=== PATIENT | female | born 1945 | race Caucasian/White ===

== ENCOUNTER → 2022-01-26 11:27 | Outpatient (BNVA) | payer BC, SELFPAY | PROVIDERS: PCP Neurological Surgery; Visit Provider Nurse Practitioner Family | DX: G25.0 Essential tremor (principal); R42 Dizziness and giddiness | CPT/HCPCS: 99212 ==

== ENCOUNTER → 2022-04-27 14:18 | Outpatient (BNVA) | payer BC, SELFPAY | PROVIDERS: PCP Neurological Surgery; Visit Provider Nurse Practitioner Family | DX: Z13.89 Encounter for screening for other disorder (principal) ==

== ENCOUNTER 2022-10-28 13:26 | Outpatient (AMB) | payer OTHER, SELFPAY ==
--- NOTE | 2022-10-28 13:26 | A.OFFVIS_ITS ---
Intake Vital Signs 10/28/22 13:28 Height 4 ft 11 in Weight 115 lb BMI 23.2 BP 118/72 Blood Pressure Location Rt brachial Position Sitting Pulse 84 Pulse Source Pulse Oximeter Pulse Oximetry (%) 94 Oxygen Delivery Method Room Air Intake Visit Reasons: 6 mnts f/u appt-LVM Intake Note: Patient presents for 6 month follow up. Patient states this nis a follow up on tremors I brought her equipment back.I wanted to ask her for something for anxiety. Allergies No Known Allergies Allergy (Verified 10/28/22 13:29) Medication List - Last Reconciled 10/28/22 by TIM Pollock aspirin 81 mg PO DAILY 90 days atorvastatin 20 mg PO DAILY donepezil 10 mg PO BEDTIME hydrochlorothiazide 25 mg PO DAILY levothyroxine 112 mcg PO DAILY naproxen 500 mg PO BID sertraline 50 mg PO DAILY HPI HPI Comments History of Present Illness Details 77-yr-old female presents for f/u visit, accompanied by her long-term partner Mandeep. Pt denies any significant interval medical changes. However, pt reports she has been having anxiety but she odes not know why. She describes the anxiety as a feeling of chest heaviness that comes on and off for about 30 minutes at a time. She denies any associated stress, worry, palpitations, SOB, or chest pain. Her tremor is now well-controlled after she started using Blake-Trio. She used it for a 90 day cycle- and feels the tremor is still well-controlled. She was not sure if she should return the device. She tolerated it well, but her partner believes it has caused a growth/swelling in the left posterior wrist. Today the area is non-tender, they state it smaller now than it originally was. [facility] Medical History Arthritis Carpal tunnel syndrome CREST syndrome Hyperlipidemia Hypothyroidism Osteoarthritis Osteoporosis Family History Father Essential tremor Brother Essential tremor Brother Essential tremor Social History Alcohol intake: current Alcohol intake frequency: a few times a month Patient Tobacco Use Status: Former Tobacco user Review of Systems Const All systems reviewed & are unremarkable except as noted in HPI and below Physical Exam Vital Signs: Last Vital Signs Pulse 84 10/28/22 13:28 BP 118/72 10/28/22 13:28 Pulse Ox 94 10/28/22 13:28 Oxygen Delivery Method Room Air 10/28/22 13:28 BMI result Body Mass Index 23.2 Const General: cooperative and no acute distress Orientation/consciousness: patient oriented x3 HEENT Head: Yes normocephalic Resp Effort & Inspection: normal respiratory effort and able to speak in complete sentences Neuro Other: Mild BUE postural tremor. No significant tone. Left posterior wrist- ? bony growth/mass. General: patient oriented x3, gait normal and CN's II-XI intact bilaterally Cognition (Neuro): normal cognition Motor exam (neuro): 5/5 motor strength present throughout Psych Appearance: grossly normal Mental Status: mental status grossly normal Speech and movement: Clear speech present Affect: normal affect Attitude: cooperative Assessment & Plan Assessment & Plan (1) Chest heaviness: Code(s): R07.89 - Other chest pain (2) Essential tremor: Code(s): G25.0 - Essential tremor (3) Mass of left wrist: Code(s): R22.32 - Localized swelling, mass and lump, left upper limb Plan For ET: Continue Blake-Trio for LUE (size small)- up to 5 x's per day. Pt will start w/ BID and monitor effect. Will check left wrist XR to assess growth/mass. For report of anxiety: Pt advised to undergo EKG. will f/u upon review. f/u in 4-6 months or sooner prn new/worsening s/s. Orders: Orders ECG 12 lead EKG Today R07.89 - Other chest pain XR wrist LT min 3V Today M25.532 - Pain in left wrist, R22.32 - Localized swelling, mass and lump, left upper limb Coding Level of Care Code Est Pt Level 4 (12661) Diagnoses Chest heaviness R07.89 Essential tremor G25.0 Mass of left wrist R22.32
[2022-10-28 13:28] VITALS: BP 118/72; PULSE 84; O2SAT 94; BMI 23.2
== END 2022-10-28 14:02 | disposition home or self-care (01) ==
PROVIDERS: Visit Provider Nurse Practitioner Family
DX: R07.89 Other chest pain (principal); G25.0 Essential tremor; R22.32 Localized swelling, mass and lump, left upper limb
CPT/HCPCS: 99214

== ENCOUNTER → 2022-10-28 13:26 | Outpatient (BNVA) | payer MEDICARE, SELFPAY | PROVIDERS: Visit Provider Nurse Practitioner Family | DX: R07.89 Other chest pain (principal); G25.0 Essential tremor; R22.32 Localized swelling, mass and lump, left upper limb | CPT/HCPCS: 99212 ==

== ENCOUNTER 2023-09-01 09:42 | Outpatient (AMB) | payer BC, SELFPAY ==
--- NOTE | 2023-09-01 10:09 | A.OFFVIS_ITS ---
Vital Signs 09/01/23 10:19 Height 4 ft 11 in Weight 112 lb BMI 22.6 BP 114/78 Blood Pressure Location Rt brachial Position Sitting Pulse 62 Pulse Source Pulse Oximeter Pulse Oximetry (%) 98 Oxygen Delivery Method Room Air Intake Visit Reasons: 6 mnts f/u appt-CONF Intake Note: Patient presents for 6 month follow up. patient has no concerns Allergies No Known Allergies Allergy (Verified 09/01/23 10:21) Medication List - Last Reconciled 09/01/23 by TIM Pollock aspirin 81 mg PO DAILY 90 days atorvastatin 20 mg PO DAILY donepezil 10 mg PO BEDTIME hydrochlorothiazide 25 mg PO DAILY levothyroxine 112 mcg PO DAILY naproxen 500 mg PO BID sertraline 50 mg PO DAILY HPI Comments Details: Left-handed 78-yr-old female presents for f/u visit. Pt accompanied by her friend. Pt denies any significant interval medical history changes. She continues to have BUE tremors, but LUE tremor is more bothersome. The tremor interferes with eating. She can no longer use her contacts. Denies orthostatic lightheadedness, rigidity, cramps, falls. Blake-Trio helped some, but was more of a bother- felt it caused a ganglion cyst which has finally resolved. Tremor can improve after taking a glass of wine. She plans to move to nursing home next month- to [facility]. Pt has previously failed- Carbidopa-Levodopa, Propranolol, and Primidone. [facility] Medical History Arthritis Carpal tunnel syndrome CREST syndrome Hyperlipidemia Hypothyroidism Osteoarthritis Osteoporosis Family History Father Essential tremor Brother Essential tremor Brother Essential tremor Social History Alcohol intake: current Alcohol intake frequency: a few times a month Patient Tobacco Use Status: Former Tobacco user Review of Systems Const All systems reviewed & are unremarkable except as noted in HPI and below Physical Exam Vital Signs: Last Vital Signs Pulse 62 09/01/23 10:19 BP 114/78 09/01/23 10:19 Pulse Ox 98 09/01/23 10:19 Oxygen Delivery Method Room Air 09/01/23 10:19 BMI result Body Mass Index 22.6 Const General: cooperative and no acute distress Resp Effort & Inspection: normal respiratory effort and able to speak in complete sentences Neuro Other: General: A&O x's 3 Expression: Mildly intact Voice: Intact Tremor: BUE postural tremor, mild RUE rest tremor Tone: MILD LUE tone Dyskinesia: None FFM: Mildly decreased, more so on left Foot taps: Mildly decreased Gait: Uses arms to stand, decreased left arm swing, shorted steps, left leg stride slightly shorted adam right Psych: pleasant affect Assessment & Plan Assessment & Plan (1) Essential tremor: Code(s): G25.0 - Essential tremor Category: Medical (2) Rigidity: Comment: LUE Code(s): R29.898 - Other symptoms and signs involving the musculoskeletal system Category: Medical (3) Mass of left wrist: Comment: improved Code(s): R22.32 - Localized swelling, mass and lump, left upper limb Category: Medical Plan Pt would like to retry medication for tremor. Retry CD-LD 25-100mg 1 tab 1-2 x's per day, advised to take 30 minutes before and 2 hrs after full meal or protein intake. Reviewd common CD-LD s/e's- pt advised to call arreaga w/ any untoward effects. f/u in 6 months or sooner prn. Medications: New carbidopa-levodopa 25-100 mg take w/ a cracker 30 minutes before breakfast and dinner, 1 tab PO BID 30 days 60 tabs 3RF Coding Level of Care Code Est Pt Level 4 (50178) Diagnoses Essential tremor G25.0 Rigidity R29.898 Mass of left wrist R22.32
[2023-09-01 10:19] VITALS: BP 114/78; PULSE 62; O2SAT 98; BMI 22.6
== END 2023-09-01 11:11 | disposition home or self-care (01) ==
PROVIDERS: PCP Neurological Surgery; Visit Provider Nurse Practitioner Family
DX: G25.0 Essential tremor (principal); R29.898 Other symptoms and signs involving the musculoskeletal system; R22.32 Localized swelling, mass and lump, left upper limb
CPT/HCPCS: 99214

== ENCOUNTER → 2023-09-01 09:42 | Outpatient (BNVA) | payer BC, MEDICARE, SELFPAY | PROVIDERS: PCP Neurological Surgery; Visit Provider Nurse Practitioner Family | DX: M25.532 Pain in left wrist (principal); R22.32 Localized swelling, mass and lump, left upper limb ==

== ENCOUNTER 2024-03-22 13:38 | Outpatient (AMB) | payer MEDICARE, SELFPAY ==
--- OUTSIDE RECORDS SUMMARY | 2024-03-22 13:47 | XMS_ITS | Encounter Summary ---
Author Organization [facility] Address [address] [place] [address] Care Team Providers Care Certified Pharmacist Assistant Name Role Phone Vida Terrell MD Primary Care Provider Braxton Lyn MD Unavailable [phone] Marnie Lee MD Unavailable [phone] Encounter Details Date Type Department Care Team (Late st Contact Info) Description 03/27/2018 Scanned Document [facility] Neurology [place] [address] [place] [address] Lan Sauceda MD [address] [place] [address] Social History Tobacco Use Types Packs/Day Years Used Date Smoking Tobacco: Former Smokeless Tobacco: Former Comments:quit 40 years ago Alcohol Use Standard Drinks/Week Comments Yes 0 (1 standard drink = 0.6 oz pur e alcohol) 2 per week Sex and Gender Information Value Date Recorded Sex Assigned at Not on file Gender Identity Not on file Sexual Orientation Not on file documented as of this encounter Plan of Treatment Not on file documented as of this encounter Visit Diagnoses Not on filedocumented in this encounter Care Teams Certified Pharmacist Assistant Relationship Specialty Start Date End Date Vida Terrell MD [address] [place] [id number] PCP - General 02/15/18 Braxton Lyn MD [address] [place] [address] Consulting Provider Rheumatology 03/23/18 Marnie Lee MD [address] [place] [address] Consulting Provider Neurology 03/23/18 documented as of this encounter
--- OUTSIDE RECORDS SUMMARY | 2024-03-22 13:47 | XMS_ITS | Encounter Summary ---
Author Organization [facility] Address [address] [place] [address] Care Team Providers Care Edge Dyer Name Role Phone Vida Terrell MD Primary Care Provider Braxton Lyn MD Unavailable [phone] Marnie Lee MD Unavailable [phone] Encounter Details Date Type Department Care Team (Late st Contact Info) Description 02/23/[address] [facility] [place] [address] Lan Sauceda MD [address] [place] [address] Social History Tobacco Use Types Packs/Day Years Used Date Smoking Tobacco: Never Assessed Sex and Gender Information Value Date Recorded Sex Assigned at Not on file Gender Identity Not on file Sexual Orientation Not on file documented as of this encounter Plan of Treatment Not on file documented as of this encounter Visit Diagnoses Not on filedocumented in this encounter Care Teams Edge Dyer Relationship Specialty Start Date End Date Vida Terrell MD [address] [place] [id number] PCP - General 02/15/18 Braxton Lyn MD [address] [place] [address] Consulting Provider Rheumatology 03/23/18 Marnie Lee MD [address] [place] [address] Consulting Provider Neurology 03/23/18 documented as of this encounter
--- OUTSIDE RECORDS SUMMARY | 2024-03-22 13:47 | XMS_ITS | Clinical Summary ---
Author Organization [facility] Address [address] [place] [id number] Care Team Providers Care [employer] Name Role Phone Vida Terrell MD Primary Care Provider Braxton Lyn MD Unavailable Marnie Lee MD Unavailable [phone] Allergies No known active allergies Medications Medication Sig Dispensed Refills Start Date End Date Status naproxen (NAPROSYN) 500 MG tablet Take 1 tablet by mouth 2 (two) times a day as needed. 02/10/2018 Active meclizine (ANTIVERT) 25 MG tablet Take 1 tablet by mouth 3 (three) times a day as needed. 02/09/2018 Active levothyroxine (SYNTHROID, LEVOTHROID) 112 MCG tablet Take 1 tablet by mouth daily. 02/10/2018 Active hydrochlorothiazide (HYDRODIURIL) 25 MG tablet Take 1 tablet by mouth daily. 02/10/2018 Active fluticasone (FloNASE) 50 mcg/spray nasal spray 2 sprays into each nostril daily as needed. Active atorvastatin (LIPITOR) 10 MG tablet Take 1 tablet by mouth daily. 02/21/2018 Active ustekinumab (STELARA) 45 MG/0.5ML injection Stelara 45 mg/0.5 mL subcutaneous syringe Active estradiol (ESTRACE) 0.01 % vaginal cream Insert 2 g into the vagina daily. 01/23/2018 Active coenzyme Q10 (CO Q 10) 100 MG capsule Take 100 mg by mouth daily. Active calcium carbonate (OS-LAURA) 600 MG tablet Take 600 mg by mouth every morning with breakfast. Active cetirizine (ZyrTEC) 10 MG tablet Take 10 mg by mouth daily as needed. Active Cholecalciferol (VITAMIN D3 PO) Take 1 tablet by mouth daily. Active Multiple Vitamins-Minerals (CENTRUM SILVER ULTRA WOMENS PO) Take 1 tablet by mouth daily. 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 02/2017 CREST syndrome 01/23/2018 Arthritis 01/21/2017 Chronic right shoulder pain 09/30/2016 Vertigo 01/22/2016 Family History Medical History Relation Name Comments Tremor Brother 1 Tremor Brother 2 Dementia Father Parkinsonism Father Stroke Father Tremor Father Dementia Mother Psoriasis Mother Stroke Mother Dementia Sister Glaucoma Sister Relation Name Status Comments Brother 1 Alive Brother 2 Alive Father Mother Sister Alive Social History Tobacco Use Types Packs/Day Years Used Date Smoking Tobacco: Former Smokeless Tobacco: Former Comments:quit 40 years ago Alcohol Use Standard Drinks/Week Comments Yes 0 (1 standard drink = 0.6 oz pur e alcohol) 2 per week Sex and Gender Information Value Date Recorded Sex Assigned at Not on file Gender Identity Not on file Sexual Orientation Not on file Last Filed Vital Signs Vital Sign Reading Time Taken Comments Blood Pressure 138/88 04/20/2018 11:01 AM EDT Pulse 80 04/20/2018 11:01 AM EDT Temperature - - Respiratory Rate - - Oxygen Saturation - - Inhaled Oxygen Concentration - - Weight 51.3 kg (113 lb) 04/20/2018 11:01 AM EDT Height 154.9 cm (5' 1 ) 04/20/2018 11:01 AM EDT Body Mass Index 21.35 04/20/2018 11:01 AM EDT Plan of Treatment Health Maintenance Due Date Last Done Comments Hepatitis C Virus Screening 1945 Quantiferon Gold TB 1954 DTaP/Tdap/Td Vaccines (1 - Tdap) 06/25/1963 Pneumococcal Vaccines 50+ (1 of 2 - PCV) 06/25/1963 Zoster (Shingles) Vaccine (1 of 2) 06/25/1963 DXA Bone Density (Females,Ages 65 and older) 2009 RSV Vaccine 60 years and older and Patients (1 - 1-dose 75+ series) 06/25/2019 Influenza Vaccine 09/08/2023 11/15/2016, 11/10/2015 COVID-19 Vaccine (1 - 2023-2 5 season) 2023 Hepatitis B Vaccines Aged Out No long er eligible based on patient's age to complete this topic Care Teams [employer] Relationship Specialty Start Date End Date Vida Terrell MD [address] [place] [id number] PCP - General 02/15/18 Braxton Lyn MD [address] [place] [address] Consulting Provider Rheumatology 03/23/18 Marnie Lee MD [address] [place] [phone] Consulting Provider Neurology 03/23/18
--- OUTSIDE RECORDS SUMMARY | 2024-03-22 13:47 | XMS_ITS | Encounter Summary ---
Author Organization [facility] Address [address] [place] [address] Care Team Providers Care Real Estate Teacher Name Role Phone Vida Terrell MD Primary Care Provider Braxton Lyn MD Unavailable [phone] Marnie Lee MD Unavailable [phone] Encounter Details Date Type Department Care Team (Late st Contact Info) Description 03/27/2018 Scanned Document [facility] Neurology [place] [address] [place] [address] Lan Sauceda MD [address] [place] [address] Social History Tobacco Use Types Packs/Day Years [...] on filedocumented in this encounter Care Teams Real Estate Teacher Relationship Specialty Start Date End Date Vida Terrell MD [address] [place] [id number] PCP - General 02/15/18 Braxton Lyn MD [address] [place] [address] Consulting Provider Rheumatology 03/23/18 Marnie Lee MD [address] [place] [address] Consulting Provider Neurology 03/23/18 documented as of this encounter
--- OUTSIDE RECORDS SUMMARY | 2024-03-22 13:47 | XMS_ITS | Clinical Summary ---
Author Organization [facility] Address [address] [place] [address] Care Team Providers Care Repossessor Name Role Phone Tabitha Robison MD Primary Care Provider Allergies No known active allergies Medications atorvastatin (LIPITOR) 20 mg tablet Take 1 tablet (20 mg total) by mouth 1 (one) time each day. 06/07/19 24 Active donepeziL (ARICEPT) 10 mg tablet TAKE 1 TABLET BY MOUTH AT BEDTIME 04/14/19 24 Active fluorouraciL (EFUDEX) 5 % cream Apply 1 Drop topically 2 times daily. Per derm Active levothyroxine (SYNTHROID, LEVOTHROID) 112 mcg tablet Take 1 tablet (112 mcg total) by mouth 1 (one) time each day. 09/05/19 24 Active sertraline (ZOLOFT) 50 mg tablet Take 1.5 tablets (75 mg total) by mouth 1 (one) time each day. 02/17/19 24 Active calcium carb/vit D3/minerals (CALCIUM-VITAM IN D ORAL) 1 TAB PO QD Active cetirizine (ZyrTEC) 10 mg tablet 1 TABLET DAILY 02/17/19 07 Active naproxen (NAPROSYN) 500 mg tablet Take 1 tablet (500 mg total) by mouth 2 (two) times a day with meals. 180 tablet 1 03/02/19 25 Active hydroCHLOROthi azide (HYDRODIURIL) 25 mg tablet TAKE 1 TABLET BY MOUTH DAILY 90 tablet 1 03/13/19 25 Active hydroCHLOROthi azide (HYDRODIURIL) 25 mg tablet Take 1 tablet (25 mg total) by mouth 1 (one) time each day. 09/23/19 24 025 Discontinued naproxen (NAPROSYN) 500 mg tablet Take 1 Tablet by mouth 2 times daily (with meals). 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 Osteopenia 08/01/2013 Hypertension 07/14/2010 ADHD (attention deficit hyperactivity disorder) 02/14/2009 Carpal tunnel syndrome 03/01/2007 Psoriasis 04/23/2005 Overview (01/20/2024): Follows with [place] [facility], last seen 08/13/2021 restarted on Stelara Meniere's disease 04/23/2005 Overview (01/20/2024): IMO update Lumbago 04/23/2005 Depressive disorder 04/23/2005 Hypothyroidism 04/23/2005 Psoriatic arthropathy 04/23/2005 Pure hypercholesterolemia 04/23/2005 Immunizations Name Administration Dates Next Due DTaP, Unspecified 12/23/2001 Influenza Quadravalent, MDCK , 0.5ml, preservative free (Flucelvax) 6mo and older 03/07/2019 Influenza Quadravalent, MDCK , 0.5ml, with preservative (Flucelvax) 6mo and older 12/17/2016 Influenza trivalent, 0.5mL ( Fluad) 65yo and older 11/13/2022,10/29/2021,11/11/2020 Influenza trivalent, 0.5mL, preservative free (Fluarix; FluLaval; Fluzone) ages 6mo and older (Afluria) 3 years and older 11/13/2019,11/09/2017,11/15/2016,11/09 Influenza trivalent, with pr eservative (Fluzone; Afluria) 6mo and older 11/05/2017,12/10/2015,12/02/2014,11/07,11/27/2013,11/07/2013,11/02/2012 ,11/03/2011,11/12/2010,11/13/2009,12/08 Moderna (age 6mo & older) Bi valent, COVID-19, 0.5 mL or 0.25 mL dosage 10/29/2021 Moderna SARS-CoV-2 COVID-19, mRNA, LNP-S, preservative free 12/26/2020 PPD Test 06/18/2003 Pfizer SARS-CoV-2 COVID-19, mRNA, LNP-S, preservative free 12/26/2020,05/28/2020,05/08/2020 Pneumococcal conjugate 13 va lent (Prevnar 13, PCV13) 2mo and older 12/02/2014 Pneumococcal polysaccharide 23 valent (Pneumovax 23) 2yo and older 01/04/2012,01/16/2004 Td Tetanus diptheria (Tdvax) 7yo and older 04/07/2009,12/23/2001 Tdap Tetanus diptheria acell ular pertussis (Boostrix; Adacel) 7yo and older 12/17/2016 Zoster Live 08/08/2013,08/07/2013 Surgical History Surgery Date Site/Laterality Comments BREAST REDUCTION PROCEDURE: OK BREAST REDUCTION TONSILLECTOMY PROCEDURE: HISTORICAL TONSILLECTOMY APPENDECTOMY PROCEDURE: OK APPENDECTOMY CARPAL TUNNEL RELEASE 02/15/2017 Left PROCEDURE: HISTORICAL CARPAL TUNNEL REL Medical History Medical History Date Comments Psoriatic arthropathy ([facility]/HCC) DX:Psoriatic arthropathy (HCC) Lumbago DX:Lumbago Unspecified hypothyroidism 04/23/2005 DX:Un specified hypothyroidism Meniere's disease, unspecified 04/23/2005 D X:Meniere's disease, unspecified Other psoriasis and similar disorders 04/23/2005 DX:Other psoriasis and similar disorders Pure hypercholesterolemia 04/23/2005 DX:Pur e hypercholesterolemia Depressive disorder, not els ewhere classified 04/23/2005 DX:Depressive disorder, not elsewhere classified Depressive disorder, not els ewhere classified 04/23/2005 DX:Depressive disorder, not elsewhere classified Anxiety state, unspecified DX:An xiety state, unspecified Generalized osteoarthrosis, unspecified site DX:Generalized osteoarthrosi s, unspecified site Essential hypertension, benign 07/14/2010 D X:Essential hypertension, benign Family History Medical History Relation Name Comments Hyperlipidemia Brother 1 Hypertension Brother 2 Sleep apnea Brother 3 Arthritis Brother 4 Arthritis Brother 5 Arthritis Father Heart failure Father Colon cancer Maternal Grandfather smoker Arthritis Mother Heart failure Mother Hyperlipidemia Mother Stroke Mother Arthritis Paternal Grandmother Hyperlipidemia Sister 1 Glaucoma Sister 2 Relation Name Status Comments Brother 1 Brother 2 Brother 3 Brother 4 Brother 5 Brother 6 Alive htn, type II, c hol, arthritis Brother 7 Alive htn, chol, arth ritis Father Maternal Grandfather Maternal Grandmother Mother Paternal Grandfather Paternal Grandmother Sister 1 Sister 2 Sister 3 1 sister, glauc keshia Social History Tobacco Use Types Packs/Day Years Used Date Smoking Tobacco: Former Cigarettes Q uit: 02/07/1974 Smokeless Tobacco: Never Alcohol Use Standard Drinks/Week Comments Yes 0 (1 standard drink = 0.6 oz pur e alcohol) Comments Unknown Sex and Gender Information Value Date Recorded Sex Assigned at Not on file Legal Sex Female 11:40 PM EST Gender Identity Not on file Sexual Orientation Not on file Obstetrics History Last Filed Vital Signs Vital Sign Reading Time Taken Comments Blood Pressure 100/70 11/30/2023 10:17 AM EDT Pulse 73 11/30/2023 10:17 AM EDT Temperature - - Respiratory Rate - - Oxygen Saturation - - Inhaled Oxygen Concentration - - Weight 51.5 kg (113 lb 9.6 oz) 11/30/2023 10:17 AM EDT Height 152.4 cm (5') 11/30/2023 10:17 AM EDT Body Mass Index 22.19 11/30/2023 10:17 AM EDT Plan of Treatment Upcoming Encounters Date Type Department Care Team (Late st Contact Info) Description 05/31/2024 9:45 AM EDT Office Visit Adult Medicine - [place] [address] [place] [id number] Tabitha Robison MD [address] [place] [address] Health Maintenance Due Date Last Done Comments Zoster Vaccines (2 of 3) 10/03/2013 08/08/2013, 02/2013 RSV Immunization Patients 60+ Years Old (1 - 1-dose 75+ series) 06/25/2019 Social Influencers of Health Screening 01/10/2022 COVID-19 Vaccine ( season) 2023 11/13/2022, 10/29/2021, 12/26/2020, Additional history exists Influenza Vaccine (#1) 2023 , 10/29/2021, 11/11/2020, Additional history exists Hypertension/CHF/CAD Annual BMP Blood Test 05/10/2024 05/11/2023 Depression Screening 11/29/2024 11/30/2023 Falls Risk Assessment 11/29/2024 11/30/2023 DTaP,Tdap,and Td Vaccines (5 - Td or Tdap) 12/17/2026 12/17/2016, 04/07/2009, 12/23/2001, Additional history exists Osteoporosis Screening (Bone Density Screening) 11/18/2027 11/17/2017 Cholesterol Screening (Lipid Panel) 05/10/2028 05/11/2023 Hepatitis C Screening Completed 08/07/2013 Pneumococcal Vaccine: 50+ Years Completed 12/02/2014, 01/04/2012, 01/16/2004 HIB Vaccines Aged Out No longer eligi ble based on patient's age to complete this topic HPV Vaccines Aged Out No longer eligi ble based on patient's age to complete this topic Hepatitis A Vaccines Aged Out No long er eligible based on patient's age to complete this topic Hepatitis B Vaccines Aged Out No long er eligible based on patient's age to complete this topic IPV Vaccines Aged Out No longer eligi ble based on patient's age to complete this topic MMR Vaccines Aged Out No longer eligi ble based on patient's age to complete this topic Meningococcal ACWY Vaccine Aged Out N o longer eligible based on patient's age to complete this topic Meningococcal B Vacine Aged Out No lo nger eligible based on patient's age to complete this topic RSV Immunization Patients Under 20 months Aged Out No longer eligible based on patient's age to complete this topic Varicella Vaccines Aged Out No longer eligible based on patient's age to complete this topic Procedures Procedure Name Priority Date/Time Associated Diagnosis Comments HM DEPRESSION SCREENING Routine 11/30/2023 FALLS RISK ASSESSMENT Routine 11/30/2023 ANNUAL BMP BLOOD TEST Routine 05/11/2023 LIPID PANEL Routine 05/11/2023 DXA BONE DENSITY STUDY 1+ SITS AXIAL SKEL Routine 11/17/2017 7:01 PM EDT Other specified disorders of bone density and structure, unspecified site HEPATITIS C SCREENING Routine 08/07/2013 from Last 3 Months or Most Recently Relevant to Health Maintenance Results * Falls Risk Assessment (11/30/2023) [facility] Falls Risk Assessment abstracted [facility] Provider HEALTH MAINTENANCE Final Result * Depression Screening (11/30/2023) Pathologist [facility] Depression Screening abstracted [facility] Provider HEALTH MAINTENANCE Final Result * Annual BMP Blood Test (05/11/2023) Pathologist [facility] Annual BMP Blood Test abstracted [facility] Provider HEALTH MAINTENANCE Final Result * (ABNORMAL) Lipid panel (05/11/2023) [facility] LDL/HDL Ratio 3 0 - 4 Triglycerides 90 0 - 150 mg/dL Cholesterol 239(A) 0 - 200 mg/dL HDL 88 >=40 mg/dL LDL Cholesterol 133(A) 0 - 100 mg/dL Blood Venous blood specimen / Unknown [facility] Provider LAB BLOOD ORDERABLES Hannah l Result * DXA BONE DENSITY STUDY 1+ SITS AXIAL SKEL (11/17/2017 7:01 PM EDT) Anatomical Region Laterality Modality Bone Densitometr y 08/25/2017 3:18 PM EDT Narrative 11/18/2017 6:36 PM EDT DEXA SCAN: Lumbar Spine T-score is 1.5. ?? (SD relative to 20-29 y/o adult) Z-score is 3.8. ??(SD relative to age matched peers) This is considered normal by WHO criteria. Left Hip T-score is -2.0. Z-score is -0.3. This is considered osteopenia by WHO criteria. Comparison exam(s): None. IMPRESSION: Osteopenia by WHO criteria. This patient has a 11% risk of major osteoporotic fracture and a 2.1% risk of hip fracture over the next 10 years. (World Health Organization Fracture Risk Assessment) [facility] Department of Internal Medicine recommends using National Osteoporosis Foundation (NOF) guidelines in treatment decisions related to osteoporosis. NOF guidelines suggest considering treatment for postmenopausal women and men aged 50 or older presenting with the following: History of hip or vertebral fracture. T-score = -2.5 (DXA) at the femoral neck, total hip, or spine, after appropriate evaluation to exclude secondary causes. Low bone mass (T-score between -1.0 and -2.5 at the femoral neck or spine) AND a 10-year probability of a hip fracture = 3% OR a 10-year probability of a major osteoporosis-related fracture = 20% based on the [place]-adapted WHO algorithm Please note that all treatment decisions require clinical judgment and consideration of individual patient factors, including patient preferences, co-morbidities, previous drug use, risk factors not captured in the FRAX model (e.g., frailty, falls, vitamin D deficiency, increased bone turnover, interval significant decline in bone density) and possible under- or over-estimation of fracture risk by FRAX. Optional alternative screening schedule based on juliet Amos., [facility] February 25, 2011 for patients with osteopenia (based on hip BMD T-score) is as follows: * ??advanced osteopenia (T scores -2.00 to -2.49), BMD testing every year * ??moderate osteopenia (T scores -1.50 to -1.99), BMD testing every 5 years mild osteopenia or normal BMD (T scores -1.50 and higher), BMD testing every 15 years Procedure Note Juan Castañeda MD - 01/26/2022 DEXA SCAN: Lumbar Spine T-score is 1.5. (SD relative to 20-29 y/o adult) Z-score is 3.8. (SD relative to age matched peers) This is considered normal by WHO criteria. Left Hip T-score is -2.0. Z-score is -0.3. This is considered osteopenia by WHO criteria. Comparison exam(s): None. IMPRESSION: Osteopenia by WHO criteria. This patient has a 11% risk of majorosteoporotic fracture and a 2.1% risk of hip fracture over the next 10 years. (WorldHealth Organization Fracture Risk Assessment) [facility] Department of Internal Medicine recommendsusing National Osteoporosis Foundation (NOF) guidelines in treatment decisions related toosteoporosis. NOF guidelines suggest considering treatment for postmenopausal women and menaged 50 or older presenting with the following: History of hip or vertebral fracture. T-score = -2.5 (DXA) at the femoral neck, total hip, or spine, afterappropriate evaluation to exclude secondary causes. Low bone mass (T-score between -1.0 and -2.5 at the femoral neck or spine)AND a 10-year probability of a hip fracture = 3% OR a 10-year probability of a majorosteoporosis-related fracture = 20% based on the [place]-adapted WHO algorithm Please note that all treatment decisions require clinical judgment andconsideration of individual patient factors, including patient preferences, co- morbidities,previous drug use, risk factors not captured in the FRAX model (e.g., frailty, falls, vitaminD deficiency, increased bone turnover, interval significant decline in bone density) andpossible under- or over-estimation of fracture risk by FRAX. Optional alternative screening schedule based on juliet Amos., [facility] for patients with osteopenia (based on hip BMD T-score) is as follows: * advanced osteopenia (T scores -2.00 to -2.49), BMD testing every year * moderate osteopenia (T scores -1.50 to -1.99), BMD testing every 5years mild osteopenia or normal BMD (T scores -1.50 and higher), BMD testingevery 15 years Vida Terrell MD [facility] [place] [place] DXA PROCEDURES Hannah l Result * Hepatitis C Screening (08/07/2013) Hepatitis C Screening abstracted us Historical Provider HEALTH MAINTENANCE Final Result from Last 3 Months or Most Recently Relevant to Health Maintenance Care Teams Repossessor Relationship Specialty Start Date End Date Tabitha Robison MD PCP - General 02/23/22
--- OUTSIDE RECORDS SUMMARY | 2024-03-22 13:47 | XMS_ITS | Clinical Summary ---
Author Organization [facility] Address [address] [place] [address] Care Team Providers Care Medical Reimbursement Specialist Name Role Phone Hoda Terrell MD Primary Care Provider [phone] Allergies No known active allergies Medications Medication Sig Dispensed Refills Start Date End Date Status amphetamine-dextroam phetamine (ADDERALL) 20 MG tablet Take 0.5 tablets by mouth 2 (two) times a day. 0 09/13/2016 Active hydrochlorothiazide (HYDRODIURIL) tablet 25 mg Take 25 mg by mouth daily. 0 Active naproxen (NAPROSYN) 500 MG tablet Take 500 mg by mouth 2 (two) times a day with meals. 0 Active levothyroxine (SYNTHROID, LEVOXYL) tablet 100 mcg Take 100 mcg by mouth every morning on an empty stomach. 0 Active atorvastatin (LIPITOR) tablet 10 mg 0 08/25/2018 Active naproxen (NAPROSYN) 500 MG tablet Take 1 tablet by mouth. 0 02/10/2018 Active ustekinumab (STELARA) 45 MG/0.5ML subcutaneous injection Stelara 45 mg/0.5 mL subcutaneous syringe 0 Active meclizine (ANTIVERT) 25 MG tablet Take 1 tablet by mouth. 0 02/09/2018 Active fluticasone (FLONASE) 50 MCG/ACT nasal spray spray or apply 2 sprays inside Nose. 0 Active estradiol (ESTRACE) 0.1 MG/GM vaginal cream Place 2 g vaginally. 0 01/23/2018 Acti ve Coenzyme Q10 100 MG capsule Take 100 mg by mouth. 0 Active cholecalciferol (VITAMIN D3) 1000 units tablet Take 1 tablet by mouth. 0 Active cetirizine (ZyrTEC) 10 MG tablet Take 10 mg by mouth. 0 Ac tive calcium carbonate (OS-LAURA) 600 MG tablet Take 600 mg by mouth. 0 Active atorvastatin (LIPITOR) tablet 10 mg Take 1 tablet by mouth. 0 02/21/2018 Active Active Problems Problem Noted Date Diagnosed Date Internal impingement of right shoulder 9 Arthritis of right glenohumeral joint 09/07/2018 Chronic right shoulder pain 09/30/2016 Family History Medical History Relation Name Comments Arthritis Father Arthritis Mother Relation Name Status Comments Father Mother Social History Tobacco Use Types Packs/Day Years Used Date Smoking Tobacco: Never Assessed Sex and Gender Information Value Date Recorded Sex Assigned at Not on file Gender Identity Not on file Sexual Orientation Not on file Last Filed Vital Signs Vital Sign Reading Time Taken Comments Blood Pressure - - Pulse - - Temperature - - Respiratory Rate - - Oxygen Saturation - - Inhaled Oxygen Concentration - - Weight 56.7 kg (125 lb) 09/30/2016 10:34 AM EDT Height 152.4 cm (5') 09/30/2016 10:34 AM EDT Body Mass Index 24.41 09/30/2016 10:34 AM EDT Plan of Treatment Health Maintenance Due Date Last Done Comments Hepatitis C Screening 1944 COVID-19 Vaccine (#1) 1944 Depression Screening 1956 Preventative Health Evaluation 1962 DTap / Tdap / Td (1 - Tdap) 06/25/1963 Shingrix-Zoster Vaccine (1 of 2) 1994 Fall Risk Assessment 2009 Osteoporosis Screening (DEXA Scan) 2009 Pneumococcal Vaccine (1 of 1 - PCV) 2009 RSV Adult > 60+ Yrs or Pregn ant (1 - 1-dose 75+ series) 06/25/2019 Influenza Vaccine (#1) 2023 Hepatitis B Vaccines Aged Out No long er eligible based on patient's age to complete this topic RSV Ped < 20 months Aged Out No longe r eligible based on patient's age to complete this topic Care Teams Medical Reimbursement Specialist Relationship Specialty Start Date End Date Hoda Terrell MD PCP - General Internal Medicine 09/27/16
--- NOTE | 2024-03-22 14:01 | MHC.OFFVIS ---
Vital Signs 03/22/24 14:08 Height 4 ft 11 in Weight 121 lb BMI 24.4 BP 120/60 Blood Pressure Location Rt brachial Position Sitting Pulse 65 Pulse Source Pulse Oximeter Pulse Oximetry (%) 94 Oxygen Delivery Method Room Air Intake Visit Reasons: Follow Up Esthetician Required: No Accompanied by: Spouse Allergies No Known Allergies Allergy (Verified 03/22/24 14:07) HPI Comments Details: Left-handed 78-yr-old female presents for f/u visit. Pt accompanied by her friend. Pt denies any significant interval medical history changes. Pt has moved into [facility], which she is enjoying. She continues to have BUE tremors, but LUE tremor is more bothersome/annoying. She started CD-LD 25-100mg bid- she is not sure how much it is helping. She is Ind with ADLs. She is eating without difficulty. She now has a 4-wheeled seated walker for longer walks and walks out doors. The tremor interferes with eating. She can no longer use her contacts. Denies orthostatic lightheadedness, rigidity, cramps, falls. Tremor can improve after taking a glass of wine. Pt has previously tried- Propranolol and Primidone- ineffective Blake-Trio helped some, but was more of a bother- felt it caused a ganglion cyst which has finally resolved. [facility] Medical History Arthritis Carpal tunnel syndrome CREST syndrome Hyperlipidemia Hypothyroidism Osteoarthritis Osteoporosis Family History Father Essential tremor Brother Essential tremor Brother Essential tremor Social History Alcohol intake: current Alcohol intake frequency: a few times a month Patient Tobacco Use Status: Former Tobacco user Physical Exam Vital Signs: Last Vital Signs Pulse 65 03/22/24 14:08 BP 120/60 03/22/24 14:08 Pulse Ox 94 03/22/24 14:08 Oxygen Delivery Method Room Air 03/22/24 14:08 BMI result Body Mass Index 24.4 Const General: cooperative and no acute distress Resp Effort & Inspection: normal respiratory effort and able to speak in complete sentences Neuro Other: General: A&O x's 3 Expression: Mildly intact Voice: Intact Tremor: BUE postural tremor, mild RUE rest tremor Tone: Mild LUE tone Dyskinesia: None FFM: Mildly decreased, more so on left Foot taps: Mildly decreased Gait: Uses arms to stand, decreased left arm swing, shorter steps. Psych: pleasant affect Assessment & Plan Assessment & Plan (1) Essential tremor: Code(s): G25.0 - Essential tremor Category: Medical (2) Rigidity: Comment: LUE Code(s): R29.898 - Other symptoms and signs involving the musculoskeletal system Category: Medical (3) Gait difficulty: Code(s): R26.9 - Unspecified abnormalities of gait and mobility Category: Medical Plan Continue CD-LD 25-100mg 1 tab 1-2 x's per day. Encourage patient to continue participating in group activities offered at her [facility]. Continue regular physical activity, concur with using walker for longer distances in the outside. f/u in 6 months or sooner prn. Coding Level of Care Code Est Pt Level 4 (43235) Diagnoses Essential tremor G25.0 Rigidity R29.898 Gait difficulty R26.9
[2024-03-22 14:08] VITALS: BP 120/60; PULSE 65; O2SAT 94; BMI 24.4
== END 2024-03-22 14:54 | disposition home or self-care (01) ==
PROVIDERS: PCP Neurological Surgery; Visit Provider Nurse Practitioner Family
DX: G25.0 Essential tremor (principal); R29.898 Other symptoms and signs involving the musculoskeletal system; R26.9 Unspecified abnormalities of gait and mobility
CPT/HCPCS: 99214

== ENCOUNTER → 2024-03-22 13:38 | Outpatient (BNVA) | payer MEDICARE, SELFPAY | PROVIDERS: PCP Neurological Surgery; Visit Provider Nurse Practitioner Family | DX: G25.0 Essential tremor (principal); R26.9 Unspecified abnormalities of gait and mobility; R29.898 Other symptoms and signs involving the musculoskeletal system | CPT/HCPCS: 99212 ==

== ENCOUNTER 2024-10-15 13:54 | Outpatient (AMB) | payer MEDICARE, SELFPAY ==
[2024-10-15 14:33] VITALS: BP 100/60; BMI 23.8
--- NOTE | 2024-10-15 14:33 | A.OFFVIS_ITS ---
Vital Signs 10/15/24 14:33 Height 4 ft 11 in Weight 118 lb BMI 23.8 BP 100/60 Blood Pressure Location Rt brachial Position Sitting Intake Visit Reasons: 6-9 mo follow up Social Media Analyst Required: No Accompanied by: Self / Same As Patient Allergies No Known Allergies Allergy (Verified 03/22/24 14:07) Medication List - Last Reconciled 10/15/24 by TIM Pollock aspirin 81 mg PO DAILY 90 days atorvastatin 20 mg PO DAILY carbidopa-levodopa 25-100 mg ER 2 tabs PO BID 30 days donepezil 10 mg PO BEDTIME hydrochlorothiazide 25 mg PO DAILY levothyroxine 112 mcg PO DAILY naproxen 500 mg PO BID HPI Comments Details: Left-handed 79-yr-old female presents for f/u visit. Pt accompanied by her friend. Pt denies any significant interval medical history changes. Pt continues to live at [facility], which she is enjoying. She continues to have BUE tremors, but LUE tremor is more bothersome/annoying. She is not sure per carbidopa levodopa is helping. It is ordered as CD-LD 25- 100mg bid- but she may forget to take a dose She is Ind with ADLs. She states she can spill and drop food now. She now has a 4-wheeled seated walker for longer walks and walks out doors. Denies orthostatic lightheadedness, rigidity, cramps, falls, hallucinations. Tremor can improve after taking a glass of wine. Pt has previously tried- Propranolol and Primidone- ineffective Blake-Trio helped some, but was more of a bother- felt it caused a ganglion cyst which has finally resolved. [facility] Medical History Arthritis Carpal tunnel syndrome CREST syndrome Hyperlipidemia Hypothyroidism Osteoarthritis Osteoporosis Family History Father Essential tremor Brother Essential tremor Brother Essential tremor Social History Alcohol intake: current Alcohol intake frequency: a few times a month Patient Tobacco Use Status: Former Tobacco user Physical Exam Vital Signs: Last Vital Signs BP 100/60 10/15/24 14:33 BMI result Body Mass Index 23.8 Const General: cooperative and no acute distress Resp Effort & Inspection: normal respiratory effort and able to speak in complete sentences Neuro Other: General: A&O x's 3 Expression: Mildly intact Voice: Intact Tremor: BUE postural tremor, mild RUE rest tremor Tone: Mild LUE tone Dyskinesia: None FFM: Mildly decreased, more so on left Foot taps: Mildly decreased Gait: Uses arms to stand, decreased left arm swing, shorter steps, with valgus- followed by ortho. Psych: pleasant affect Assessment & Plan Assessment & Plan (1) Essential tremor: Code(s): G25.0 - Essential tremor Category: Medical (2) Rigidity: Comment: LUE Code(s): R29.898 - Other symptoms and signs involving the musculoskeletal system Category: Medical (3) Gait difficulty: Code(s): R26.9 - Unspecified abnormalities of gait and mobility Category: Medical Plan Discontinue CD-LD 25-100mg 1 tab 1-2 x's per day. Try carbidopa levodopa ER 25-100 mg, 2 tabs twice a day * Reviewed common possible side effects such as orthostatic hypotension, hallucinations * Stress importance of taking it consistently to see best effect Encourage patient to continue participating in group activities offered at her [facility]. Continue regular physical activity, concur with using walker for longer distances in the outside. Future considerations: Low-dose amantadine f/u in 6 months or sooner prn. Medications: New carbidopa-levodopa 25-100 mg ER 2 tabs PO BID 120 tabs 6RF 30 days Discontinued carbidopa-levodopa 25-100 mg take w/ a cracker 30 minutes before breakfast and dinner, Discontinued Reason: Doctor's Order 1 tab PO BID 30 days 60 tabs 6RF Coding Level of Care Code Est Pt Level 4 (02501) Diagnoses Essential tremor G25.0 Rigidity R29.898 Gait difficulty R26.9
--- OUTSIDE RECORDS SUMMARY | 2024-10-15 16:16 | XMS_ITS ---
Author Name [facility] Organization Unknown Care Team Organization Name Specialty Phone Email Start Date End Da evon [facility] Termed, PROVIDER Primary Care 12/15/202109/07
--- OUTSIDE RECORDS SUMMARY | 2024-10-15 16:16 | XMS_ITS | Clinical Summary ---
Author Organization [facility] Address [address] [place] [address] Care Team Providers Care Form Maker Name Role Phone Hoda Terrell MD Primary Care Provider [phone] Allergies No known active allergies Medications Medication [...] Health Maintenance Due Date Last Done Comments COVID-19 Vaccine (#1) 1944 Depression Screening 1956 Preventative Health Evaluation 1962 DTap / Tdap / Td (1 - Tdap) 06/25/1963 Shingrix-Zoster Vaccine (1 of 2) 1994 Fall Risk Assessment 2009 Osteoporosis Screening (DEXA Scan) 2009 Pneumococcal Vaccine (1 of 1 - PCV) 2009 RSV Adult > 60+ Yrs or Pregn ant (1 - 1-dose 75+ series) 06/25/2019 Influenza Vaccine (#1) 2024 Hepatitis B Vaccines Aged Out No long er eligible based on patient's age to complete this topic RSV Ped < 20 months Aged Out No longe r eligible based on patient's age to complete this topic Care Teams Form Maker Relationship Specialty Start Date End Date Hoda Terrell MD PCP - General Internal Medicine 09/27/16
--- OUTSIDE RECORDS SUMMARY | 2024-10-15 16:16 | XMS_ITS | Clinical Summary ---
Author Organization [facility] Address [address] [place] [phone] Phone Care Team Providers Care Wood Heel Flap Rubber Name Role Phone Vida Terrell MD Primary Care Provid er Allergies No known active allergies Medications atorvastatin (LIPITOR) 10 MG tablet Take 10 mg by mouth daily. Active hydroCHLOROthiazi de (HYDRODIURIL) 25 MG tablet Take 25 mg by mouth daily. Active levothyroxine (SYNTHROID, LEVOTHROID) 88 MCG tablet Take 88 mcg by mouth every morning. Active naproxen (NAPROSYN) 500 MG tablet Take 500 mg by mouth 2 (two) times a day with meals. Active ustekinumab (STELARA) 45 mg/0.5 mL Syrg subcutaneous injection syringe Inject 45 mg under the skin once every 12 weeks. Active coQ10, ubiquinol, 100 mg Cap Take by mouth. Active Active Problems Problem Noted Date Diagnosed Date CREST (calcinosis, Raynaud's phenomenon, esophageal dysfunction, sclerodactyly, telangiectasia) 03/30/2021 Assessment & Plan (03/30/2021 9:30 PM EST): She could not explain to me how was the diagnosis made or who made it even today. I have asked her to sign medical records release pertinent to that diagnosis so I can learn from rheumatologic records about the details of it. According to her report she believes that it was made based on calcium deposits within her right shoulder but she could not remember details of it either. Psoriasis 03/30/2021 Assessment & Plan (03/30/2021 9:31 PM EST): Quite stable on Stelara prescribed by her endocrinology teacher. She could not remember when was first started on it. Long-term current use of ustekinumab 03/30/2021 Assessment & Plan (03/30/2021 9:35 PM EST): Continue exactly as prescribed. Hold Stelara if running fever, feeling sick or taking antibiotics. Make sure to inform any new MD, PA, PHOTONIC LABORATORY TECHNICIAN about chronic immunosuppression with Stelara, particularly in emergency situations. NSAID long-term use 03/30/2021 Assessment & Plan (03/30/2021 9:35 PM EST): Take the lowest dose, with least frequency, for shortest time. Remember to take it always with food. Favor topical over oral preparations. Acquired hypothyroidism 03/30/2021 Assessment & Plan (03/30/2021 9:28 PM EST): Close follow-up with her PCP in view of markedly elevated TSH from November 2020. Chronic pain of right knee 03/30/2021 Assessment & Plan (03/30/2021 9:34 PM EST): X-rays requested to assess degree of involvement. Joint protection, energy conservation. Gentle, regular exercise routine preceded by a warm pack or warm shower particularly strengthening quadriceps muscle. Avoid falls, injuries, overuse squatting, kneeling, stair climbing, heavy lifting. Keep body weight in ideal range for her height. She may benefit from topical cream such as Arnica, Biofreeze, Aspercreme versus medicated patches such as salonpas, icy hot patch 2-3 times daily and if necessary at bedtime x 3 weeks. Shoulder arthritis 03/30/2021 Assessment & Plan (03/30/2021 9:32 PM EST): I requested interval x-rays and asked to release prior records for comparison. I have advised using warm packs prior to gentle range of motion exercises. She may benefit from formal PT. Family History Medical History Relation Comments Arthritis Father Heart failure Father Colon cancer Maternal Grandfather Arthritis Mother Heart failure Mother Stroke Mother Relation Status Comments Father Maternal Grandfather Mother Social History Tobacco Use Types Packs/Day Years Used Date Smoking Tobacco: Former Smokeless Tobacco: Never Education Answer Date Recorded Are you interested in more education? Not on tej e 06/04/2022 Are you concerned about learning? Not on file 06/04/2022 No 06/04/2022 No 06/04/2022 Digital Access Answer Date Recorded No 07/03/2022 No 07/03/2022 Reliable internet access at home? Not on file 07/03/2022 Device with a working camera? Not on file Comments Unknown Sex and Gender Information Value Date Recorded Sex Assigned at Not on file Legal Sex Female 3:52 PM EST Gender Identity Not on file Sexual Orientation Not on file Last Filed Vital Signs Vital Sign Reading Time Taken Comments Blood Pressure 138/72 03/30/2021 9:19 AM EST Pulse 78 03/30/2021 9:19 AM EST Temperature - - Respiratory Rate 16 03/30/2021 9:19 AM EST Oxygen Saturation 91% 03/30/2021 9:19 AM EST Inhaled Oxygen Concentration - - Weight 52.8 kg (116 lb 6.4 oz) 03/30/2021 9:19 A M EST Height 151 cm (4' 11.45 ) 03/30/2021 9:19 AM EST Body Mass Index 23.16 03/30/2021 9:19 AM EST Plan of Treatment Health Maintenance Due Date Last Done Comments LIPID PANEL 1944 POTASSIUM LEVEL 1944 TSH LEVEL 1944 DEPRESSION SCREENING 1956 SMOKING Hx and SMOKELESS TOBACCO SCREENING 1957 OSTEOPOROSIS SCREENING INITIAL (ONE-TIME) 2009 ZOSTER VACCINES (2 of 3) 10/02/2013 08/07/2013 RSV VACCINE (1 - 1-dose 75+ series) 06/25/2019 INFLUENZA VACCINE (#1) 2024 , 03/07/2019, 11/05/2017, Additional history exists COVID-19 VACCINE ( season) 2024 12/26/2020, 12/26/2020, 04/17/2020, Additional history exists Adult Td,Tdap Booster 12/17/2026 12/17/2016 , 04/07/2009, 12/23/2001 PNEUMOCOCCAL VACCINES (50+ years) Completed 12/02/2014, 01/04/2012, 01/16/2004 HEPATITIS A VACCINES Aged Out No long er eligible based on patient's age to complete this topic HIB VACCINES Aged Out No longer eligi ble based on patient's age to complete this topic MENINGOCOCCAL VACCINES (ACWY) Aged Out No longer eligible based on patient's age to complete this topic MENINGOCOCCAL VACCINES (B) Aged Out N o longer eligible based on patient's age to complete this topic Medical Devices Not on file Insurance [place] BL[place] MEDICARE PPO BLUE REPLACEMENT MEDICARE PPO BLUE REPLACEMENT MEDICARE PPO BLUE REPLACEMENT MEDICARE PPO BLUE REPLACEMENT MEDICARE PPO BLUE REPLACEMENT MEDICARE PPO BLUE REPLACEMENT Care Teams Wood Heel Flap Rubber Relationship Specialty Start Date End Date Vida Terrell MD [address] [id number] PCP - General Internal Medicine 03/12/19 Additional Source Comments The information contained in this document represents components of the legal health record. It is not the complete legal health record.[facility]
--- OUTSIDE RECORDS SUMMARY | 2024-10-15 16:16 | XMS_ITS | Clinical Summary ---
Author Organization [facility] [address] [facility] Address [address] [place] [address] Phone Care Team Providers Care Lawn Care Technician Name Role Phone Tabitha Robison MD Primary Care Provider Allergies No known active allergies Medications fluorouraciL (EFUDEX) 5 % cream Apply 1 Drop topically 2 times daily. Per derm Active calcium carb/vit D3/minerals (CALCIUM-VITAMI N D ORAL) 1 TAB PO QD Active cetirizine (ZyrTEC) 10 mg tablet 1 TABLET DAILY 7 Active sertraline (ZOLOFT) 50 mg tablet Take 1.5 tablets (75 mg total) by mouth 1 (one) time each day. 135 tablet 1 5 Active atorvastatin (LIPITOR) 20 mg tablet Take 1 tablet (20 mg total) by mouth 1 (one) time each day. 90 tablet 5 Active naproxen (NAPROSYN) 500 mg tablet Take 1 tablet (500 mg total) by mouth 2 (two) times a day with meals. 180 tablet 5 Active donepeziL (ARICEPT) 10 mg tablet Take 1 tablet (10 mg total) by mouth at bedtime. 90 tablet 5 Active levothyroxine (SYNTHROID, LEVOTHROID) 112 mcg tablet Take 1 tablet (112 mcg total) by mouth 1 (one) time each day. 90 tablet 5 Active carbidopa-levod opa CR (SINEMET CR) 25-100 mg per CR tablet Take 1 tablet by mouth 2 (two) times a day. Do not crush, chew, or split. Per neuro Active hydroCHLOROthia zide (HYDRODIURIL) 25 mg tablet Take 1 tablet (25 mg total) by mouth 1 (one) time each day. 90 tablet 1 5 Active hydroCHLOROthia zide (HYDRODIURIL) 25 mg tablet Take 1 tablet (25 mg total) by mouth 1 (one) time each day. 90 tablet 1 5 09/24/19 25 Discontinu ed(Reorder ) Active Problems Problem Noted Date Diagnosed Date MCI (mild cognitive impairment) 10/14/2022 Psoriasis 10/14/2022 CREST (calcinosis, Raynaud's phenomenon, esophageal dysfunction, sclerodactyly, telangiectasia) ([facility] V24, [facility] V28) 10/21/2017 Osteopenia 08/01/2013 Hypertension 07/14/2010 ADHD (attention deficit hyperactivity disorder) 02/14/2009 Carpal tunnel syndrome 03/01/2007 Psoriasis 04/23/2005 Overview (01/20/2024): Follows with [facility], last seen 08/13/2021 restarted on Stelara Meniere's disease 04/23/2005 Overview (01/20/2024): IMO update Lumbago 04/23/2005 Depressive disorder 04/23/2005 Hypothyroidism 04/23/2005 Psoriatic arthropathy ([facility] V24, [facility] V28) 04/23/2005 Pure hypercholesterolemia 04/23/2005 Encounters Date Type Department Care Team Description 09/06/2024 2:45 PM EDT Office Visit Adult Medicine [address] [address] Tabitha Robison MD Primary hypertension (Primary Dx); Mixed hyperlipidemia; Hypothyroidism, unspecified type; MCI (mild cognitive impairment); Essential tremor from Last 3 Months Immunizations Name Administration Dates Next Due DTaP, [...] pr eservative (Fluzone; Afluria) 6mo and older 09/26/2024,01/14/2024,11/05/2017,12/09,12/02/2014,11/07/2014,11/27/2013 ,11/07/2013,11/02/2012,11/03/2011,07/2010,11/13/2009,12/23/2005 Moderna (age 6mo & older) Bi valent, [...] Surgery Date Site/Laterality Comments BREAST REDUCTION PROCEDURE: [place] BREAST REDUCTION TONSILLECTOMY PROCEDURE: HISTORICAL TONSILLECTOMY APPENDECTOMY PROCEDURE: [place] APPENDECTOMY CARPAL TUNNEL RELEASE 02/15/2017 Left PROCEDURE: HISTORICAL CARPAL TUNNEL REL Medical History Medical History Date Comments Psoriatic arthropathy (CMS/H CC V24, CMS/[facility] V28) DX:Psoriatic arthropathy (HC C) Lumbago DX:Lumbago Unspecified hypothyroidism 04/23/2005 DX:Un specified [...] = 0.6 oz pur e alcohol) Comments No Sex and Gender Information Value Date Recorded Sex Assigned at Not on file Legal Sex Female 11:40 PM EST Gender Identity Female 05/29/2024 10:24 AM EDT Sexual Orientation Not on file Obstetrics History Last Filed Vital Signs Vital Sign Reading Time Taken Comments Blood Pressure 106/57 09/06/2024 2:19 PM EDT Pulse 70 09/06/2024 2:19 PM EDT Temperature 36.1 C (97 F) 09/06/2024 2:19 PM EDT Respiratory Rate 16 09/06/2024 2:19 PM EDT Oxygen Saturation - - Inhaled Oxygen Concentration - - Weight 55.8 kg (123 lb) 09/06/2024 2:19 PM EDT Height 150 cm (4' 11.06 ) 09/06/2024 2:19 PM EDT Body Mass Index 24.8 09/06/2024 2:19 PM EDT Plan of Treatment Upcoming Encounters Date Type Department Care Team (Late st Contact Info) Description 01/08/2025 1:30 PM EST Office Visit Adult Medicine - [address] [phone] Tico Cabral PA [address] [place] [address] Health Maintenance Due Date Last Done Comments Zoster Vaccines (2 of 3) 10/03/2013 08/08/2013, 02/2013 RSV Immunization Adult Patients (1 - 1-dose 75+ series) 06/25/2019 Medicare Annual Wellness Visit 01/10/2022 Social Influencers of Health Screening 01/10/2022 Depression Screening 02/08/2024 11/30/2023 COVID-19 Vaccine ( season) 2024 11/13/2022, 10/29/2021, 12/26/2020, Additional history exists Falls Risk Assessment 11/29/2024 11/30/2023 Hypertension/CHF/CAD Annual BMP Blood Test 05/29/2025 05/29/2024, 05/11/2023 DTaP,Tdap,and Td Vaccines (5 - Td or Tdap) 12/17/2026 12/17/2016, 04/07/2009, 12/23/2001, Additional history exists Osteoporosis Screening (Bone Density Screening) 11/18/2027 11/17/2017 Cholesterol Screening (Lipid Panel) 05/29/2029 05/29/2024, 05/11/2023 Pneumococcal Vaccine: 50+ Years Completed 12/02/2014, 01/04/2012, 01/16/2004 Influenza Vaccine Completed 09/26/2024, , 11/13/2022, Additional history exists HIB Vaccines Aged Out No longer eligi [...] age to complete this topic Meningococcal B Vaccine Aged Out No l onger eligible based on patient's age to complete this topic RSV Immunization Patients Under 20 months Aged Out No longer eligible based on patient's age to complete this topic Varicella Vaccines Aged Out No longer eligible based on patient's age to complete this topic Procedures Procedure Name Priority Date/Time Associated Diagnosis Comments COMPREHENSIVE METABOLIC PANEL Routine 05/29/2024 10:23 AM EDT Primary hypertension Hypothyroidism, unspecified type LIPID PANEL WITH REFLEX TO DIRECT LDL Routine 05/29/2024 10:23 AM EDT Primary hypertension Hypothyroidism, unspecified type DEPRESSION SCREENING Routine 11/30/2023 FALLS RISK ASSESSMENT Routine 11/30/2023 DXA BONE DENSITY STUDY 1+ SITS AXIAL SKEL Routine 11/17/2017 7:01 PM EDT Other specified disorders of bone density and structure, unspecified site from Last 3 Months or Most Recently Relevant to Health Maintenance Results * Lipid panel with reflex to direct LDL (05/29/2024 10:23 AM EDT) Cholesterol 192 0 - 200 mg/dL LAB CHEMISTRY METHOD 05/29/2024 1:54 PM EDT [facility] Triglycerides 146 0 - 150 mg/dL LAB CHEMISTRY METHOD 05/29/2024 1:54 PM EDT [facility] HDL 84 >=40 mg/dL LAB CHEMISTRY METHOD 05/29/2024 1:54 PM EDT [facility] LDL Calculated 79 0 - 100 mg/dL LAB CHEMISTRY METHOD 05/29/2024 1:54 PM EDT [facility] VLDL Cholesterol [place] 29.2 mg/dL LAB CHEMISTRY METHOD 05/29/2024 1:54 PM EDT [facility] Non HDL Chol. (LDL+VLDL) 108 <145 mg/dL LAB CHEMISTRY METHOD 05/29/2024 1:54 PM EDT [facility] Chol/HDL Ratio 2.3 0.0 - 4.4 LAB CHEMISTRY METHOD 05/29/2024 1:54 PM EDT [facility] Blood Venous blood specimen / Unknown Venipuncture / Unknown 05/29/2024 10:23 AM EDT 05/29/2024 10:23 AM EDT Tabitha Robison MD LAB BLOOD ORDERABLES F inal Result [facility] [address] [place] [address], * (ABNORMAL) Comprehensive metabolic panel (05/29/2024 10:23 AM EDT) Sodium 140 133 - 145 mmol/L LAB CHEMISTRY METHOD 05/29/2024 1:52 PM [facility] Potassium 3.7 3.5 - 5.5 mmol/L LAB CHEMISTRY METHOD 05/29/2024 1:52 PM [facility] Chloride 103 96 - 110 mmol/L LAB CHEMISTRY METHOD 05/29/2024 1:52 PM [facility] CO2 30 21 - 32 mmol/L LAB CHEMISTRY METHOD 05/29/2024 1:52 PM [facility] Anion Gap 7 3 - 11 LAB CHEMISTRY METHOD 05/29/2024 1:52 PM [facility] Glucose 92 70 - 100 mg/dL LAB CHEMISTRY METHOD 05/29/2024 1:52 PM [facility] BUN 22 5 - 25 mg/dL LAB CHEMISTRY METHOD 05/29/2024 1:52 PM [facility] Creatinine 0.66 0.50 - 1.10 mg/dL LAB CHEMISTRY METHOD 05/29/2024 1:52 PM [facility] eGFR 89 >=60 mL/min/1. 73m2 LAB CHEMISTRY METHOD 05/29/2024 1:52 PM [facility] Comment:Calculation based on the Chronic Kidney Disease Epidemiology Collaboration (CKD-EPI) equation refit without adjustment for race. BUN/Creatinine Ratio 33.3 LAB CHEMISTRY METHOD 05/29/2024 1:52 PM [facility] Calcium 9.4 8.5 - 10.5 mg/dL LAB CHEMISTRY METHOD 05/29/2024 1:52 PM [facility] AST (SGOT) 21 10 - 42 unit/L LAB CHEMISTRY METHOD 05/29/2024 1:52 PM [facility] ALT (SGPT) 8(L) 10 - 60 unit/L LAB CHEMISTRY METHOD 05/29/2024 1:52 PM [facility] Alkaline Phosphatase 81 42 - 121 unit/L LAB CHEMISTRY METHOD 05/29/2024 1:52 PM [facility] Total Protein 6.7 6.0 - 8.0 g/dL LAB CHEMISTRY METHOD 05/29/2024 1:52 PM [facility] Albumin 4.1 3.2 - 5.0 g/dL LAB CHEMISTRY METHOD 05/29/2024 1:52 PM [facility] Total Bilirubin 0.8 0.0 - 1.4 mg/dL LAB CHEMISTRY METHOD 05/29/2024 1:52 PM [facility] Blood Venous blood specimen / Unknown Venipuncture / Unknown 05/29/2024 10:23 AM EDT 05/29/2024 10:23 AM EDT Tabitha Robison MD LAB BLOOD ORDERABLES F inal Result [facility] [address] [place] [address], * Falls Risk Assessment (11/30/2023) Falls Risk Assessment abstracted Historical Provider HEALTH MAINTENANCE Final Result * Depression Screening (11/30/2023) Depression Screening abstracted Historical Provider HEALTH MAINTENANCE Final Result * DXA BONE DENSITY STUDY 1+ [...] (World Health Organization Fracture Risk Assessment) [facility] Department of Internal Medicine recommends using [...] alternative screening schedule based on juliet Amos., [facility] February 25, 2011 for patients with osteopenia [...] years. (WorldHealth Organization Fracture Risk Assessment) [facility] Department of Internal Medicine recommendsusing National [...] FRAX. Optional alternative screening schedule based on yaneth Amos al., [place] 2011 for patients with osteopenia (based on hip BMD T-score) is as follows: * advanced osteopenia (T scores -2.00 to -2.49), BMD testing every year * moderate osteopenia (T scores -1.50 to -1.99), BMD testing every 5years mild osteopenia or normal BMD (T scores -1.50 and higher), BMD testingevery 15 years Vida Terrell MD IMG DXA PROCEDURES Hannah l Result from Last 3 Months or Most Recently Relevant to Health Maintenance Insurance BLUE CROSS - [place] MEDIC[place] ADVANTAGE Care Teams Lawn Care Technician Relationship Specialty Start Date End Date Tabitha Robison MD [address] [place] [id number] PCP - General 02/23/22
== END 2024-10-15 15:38 | disposition home or self-care (01) ==
LOC: HO.HSMS 13:54
PROVIDERS: PCP Neurological Surgery; Visit Provider Nurse Practitioner Family
DX: G25.0 Essential tremor (principal); R29.898 Other symptoms and signs involving the musculoskeletal system; R26.9 Unspecified abnormalities of gait and mobility
CPT/HCPCS: 99214

== ENCOUNTER → 2024-10-15 13:54 | Outpatient (BNVA) | payer MEDICARE, SELFPAY | PROVIDERS: PCP Neurological Surgery; Visit Provider Nurse Practitioner Family | DX: G25.0 Essential tremor (principal); R26.9 Unspecified abnormalities of gait and mobility | CPT/HCPCS: 99212 ==